=== PATIENT | female | born 2000 | race Two or more races ===

== ENCOUNTER 2022-03-08 12:50 | Emergency (ER) | payer OTHER ==
[~2022-03-08] VITALS: Ht 157.5 cm; Wt 81.6 kg
[2022-03-08] MEDS ORDERED: ONE A DAY PREN1 EACH PO (13:52)
== END 2022-03-09 15:04 | disposition home or self-care (01) ==
LOC: ER 12:50
DX: O20.9 Hemorrhage in early pregnancy, unspecified (principal); Z3A.01 Less than 8 weeks gestation of pregnancy